=== PATIENT | male | born 1995 | race Caucasian/White ===

== ENCOUNTER 2016-06-26 13:48 | Emergency (ER) | payer BC ==
[~2016-06-26] VITALS: Ht 180.3 cm; Wt 115.0 kg
[2016-06-26 13:49] VITALS: BP 129/88; PULSE 89; RESP 14; TEMP 98.2; O2SAT 100
[2016-06-26] MEDS ORDERED: SODIUM CHLOR 0.9% 1000 ML INJ 1,000 ML IV SCH (14:07)
[2016-06-26] MEDS ORDERED: SODIUM CHLORIDE 0.9% FLUSH 5 ML FLUSH IVF PRN (14:15)
[2016-06-26] MEDS ORDERED: ONDANSETRON HCL 4 MG/2 ML VIAL IVP ONE (14:15)
[2016-06-26] MEDS ORDERED: KETOROLAC TROMETHAMINE 30 MG/ML (IVP) VIAL IVP ONE (14:15)
[2016-06-26] MEDS ORDERED: ZOFR4TAB3 SL (14:22)
[2016-06-26] MEDS ORDERED: NAPR500 PO (14:22)
[2016-06-26] MEDS ORDERED: HYDR-3533 PO (14:22)
--- NOTE | 2016-06-26 14:22 | PD ---
HPI Chief Complaint: Flank/Kidney Pain Time Seen by Provider: 14:07 Travel History International Travel<30 days: No Contact w/Intl Traveler<30days: No Traveled to known affect area: No History of Present Illness HPI So well 20-year-old presents emergent [place] of left flank pain associate with nausea and vomiting that started about 2-3 hours prior to arrival. No history of previous similar symptoms. Family history of kidney stones. He otherwise has been feeling generally well and healthy. No fevers or chills. No diarrhea. No urinary changes and is noted. No other complaints. History Past Medical History Medical History: Denies Significant Hx Social History Tobacco Use: No Allergies-Medications (Allergen,Severity, Reaction): Coded Allergies: No Known Allergies (Unverified , 06/26/16) Reported Meds & Prescriptions Reported Meds & Active Scripts Active Zofran Odt (Ondansetron Odt) 4 Mg Tab 4 Mg SL Q8HR PRN May substitute non-ODT form. Lortab (Hydrocodone-Acetaminophen) 5-325 Mg Tab 1-2 Tab PO Q6H PRN Naprosyn (Naproxen) 500 Mg Tab 500 Mg PO BID PRN Review of Systems Except as stated in HPI: all other systems reviewed are Neg Physical Exam Narrative GENERAL: Well-appearing 20-year-old, appears uncomfortable, diaphoretic. Imminently retching. SKIN: Warm and dry. Diaphoretic. HEAD: Atraumatic. Normocephalic. CARDIOVASCULAR: Regular rate and rhythm. No murmur appreciated. RESPIRATORY: No accessory muscle use. Clear to auscultation. Breath sounds equal bilaterally. GASTROINTESTINAL: Abdomen soft, non-tender, nondistended. Hepatic and splenic margins not palpable. CVA unremarkable. MUSCULOSKELETAL: No obvious deformities. No edema. NEUROLOGICAL: Awake and alert. No obvious cranial nerve deficits. Motor grossly within normal limits. Normal speech. Data Data Last Documented VS Vital Signs Date Time Temp Pulse Resp B/P Pulse Ox O2 Delivery O2 Flow Rate FiO2 06/26/16 14:15 16 06/26/16 13:49 98.2 89 129/88 100 Room Air Orders Complete Blood Count With Diff (06/26/16 14:07) Comprehensive Metabolic Panel (06/26/16 14:07) Lipase (06/26/16 14:07) Urinalysis - C+S If Indicated (06/26/16 14:07) Iv Access Insert/Monitor (06/26/16 14:07) Ondansetron Inj (Zofran Inj) (06/26/16 14:15) Sodium Chlor 0.9% 1000 Ml Inj (Ns 1000 M (06/26/16 14:07) Sodium Chloride 0.9% Flush (Ns Flush) (06/26/16 14:15) Ketorolac Inj (Toradol Inj) (06/26/16 14:15) Ct Abd/Pel W/O Iv Contrast (06/26/16 ) Morphine Inj (Morphine Inj) (06/26/16 14:45) Labs Laboratory Tests Test 06/26/16 14:10 White Blood Count 9.9 TH/MM3 Red Blood Count 5.14 MIL/MM3 Hemoglobin 14.3 GM/DL Hematocrit 41.6 % Mean Corpuscular Volume 81.0 FL Mean Corpuscular Hemoglobin 27.9 PG Mean Corpuscular Hemoglobin 34.4 % Concent Red Cell Distribution Width 12.9 % Platelet Count 247 TH/MM3 Mean Platelet Volume 8.2 FL Neutrophils (%) (Auto) 70.0 % Lymphocytes (%) (Auto) 20.9 % Monocytes (%) (Auto) 7.4 % Eosinophils (%) (Auto) 1.4 % Basophils (%) (Auto) 0.3 % Neutrophils # (Auto) 6.9 TH/MM3 Lymphocytes # (Auto) 2.1 TH/MM3 Monocytes # (Auto) 0.7 TH/MM3 Eosinophils # (Auto) 0.1 TH/MM3 Basophils # (Auto) 0.0 TH/MM3 CBC Comment DIFF FINAL Differential Comment Urine Color YELLOW Urine Turbidity CLEAR Urine pH 6.0 Urine Specific Bricelyn 1.032 Urine Protein 30 mg/dL Urine Glucose (UA) NEG mg/dL Urine Ketones NEG mg/dL Urine Occult Blood MOD Urine Nitrite NEG Urine Bilirubin NEG Urine Urobilinogen 2.0 MG/DL Urine Leukocyte Esterase NEG Urine RBC /hpf Urine Calcium Oxalate Crystals FEW /hpf Urine Mucus FEW /lpf Microscopic Urinalysis Comment CULT NOT INDICATED Sodium Level 143 MEQ/L Potassium Level 3.8 MEQ/L Chloride Level 107 MEQ/L Carbon Dioxide Level 28.1 MEQ/L Anion Gap 8 MEQ/L Blood Urea Nitrogen 11 MG/DL Creatinine 1.16 MG/DL Estimat Glomerular Filtration 80 ML/MIN Rate Random Glucose 105 MG/DL Calcium Level 9.2 MG/DL Total Bilirubin 0.3 MG/DL Aspartate Amino Transf 16 U/L (AST/SGOT) Alanine Aminotransferase 31 U/L (ALT/SGPT) Alkaline Phosphatase 87 U/L Total Protein 7.1 GM/DL Albumin 4.5 GM/DL Lipase 117 U/L [facility] Medical Decision Making Medical Screen Exam Complete: Yes Emergency Medical Condition: Yes Interpretation(s) LABS: CBC unremarkable CMP unremarkable UA positive for hematuria CT abdomen and pelvis: 3 mm stone at the left UVJ. Differential Diagnosis Renal stone, pancreatitis, diverticulitis, UTI, other Narrative Course Medical decision making 20-year-old man with left flank pain likely renal stone. We'll check labs, CT imaging, reassess. Diagnosis Primary Impression: Renal calculus, left Additional Instructions: Take Naprosyn and Lortab as needed for pain. Take Zofran as needed for nausea or vomiting. Follow-up with a primary physician in the next 3-5 days if you're not feeling completely well. Return to the emergency department for any worsening abdominal pain, fevers or chills, or any other new or worsening symptoms. Med/Other Pt SpecificInfo: Prescription(s) given Scripts Ondansetron Odt (Zofran Odt)4 Mg Tab4 Mg SL Q8HR PRN (Nausea/Vomiting) #15 TAB May substitute non-ODT form. Prov:Scott Santos MD 06/26/16 Hydrocodone-Acetaminophen (Lortab)5-325 Mg Tab1-2 Tab PO Q6H PRN (PAIN) #12 TAB Prov:Scott Santos MD 06/26/16 Naproxen (Naprosyn)500 Mg [id number] Mg PO BID PRN (PAIN SCALE 1 TO 10) #20 TAB Prov:Scott Santos MD 06/26/16 Disposition: 01 DISCHARGE HOME Condition: Stable Scott Santos MD Jun 26, 2016 14:22
[2016-06-26 14:28] LABS: AUTOMATED NEUTROPHIL # 6.9 TH/MM3 (1.8-7.7); BASOPHIL % 0.3 % (0.0-2.0); EOSINOPHIL # 0.1 TH/MM3 (0-0.4); EOSINOPHIL % 1.4 % (0.0-4.0); HEMATOCRIT 41.6 % (39.0-51.0); HEMO FLAGS DIFF FINAL; LYMPH % 20.9 % (9.0-44.0); LYMPHOCYTE # 2.1 TH/MM3 (1.0-4.8); MEAN CORPUSCULAR HEMOGLOBIN 27.9 PG (27.0-34.0); MEAN CORPUSCULAR HGB CONC 34.4 % (32.0-36.0); MONO % 7.4 % (0.0-8.0); PLATELET COUNT 247 TH/MM3 (150-450); RED BLOOD COUNT 5.14 MIL/MM3 (4.50-5.90); RED CELL DISTRIBUTION WIDTH 12.9 % (11.6-17.2); WHITE BLOOD COUNT 9.9 TH/MM3 (4.0-11.0)
[2016-06-26 14:30] LABS: BLOOD, URINE MOD (NEG); CALCIUM OXALATE CRYSTALS,URINE FEW /hpf; COMMENT (UR) CULT NOT INDICATED; CULTURE IF INDICATED CULT NOT INDICATED; GLUCOSE,URINE NEG (NEG); KETONE, URINE NEG (NEG); MUCUS URINE FEW /lpf (OCC); NITRITE,URINE NEG (NEG); URINE COLOR YELLOW (YELLW/STRAW)
[2016-06-26 14:45] LABS: ANION GAP 8 MEQ/L (5-15); AST (GOT) 16 U/L (15-39); BICARBONATE 28.1 MEQ/L (21.0-32.0); BLOOD UREA NITROGEN 11 MG/DL (7-18); CHLORIDE 107 MEQ/L (98-107); POTASSIUM 3.8 MEQ/L (3.5-5.1); SODIUM (NA) 143 MEQ/L (136-145)
[2016-06-26] MEDS ORDERED: MORPHINE SULFATE 4 MG/ML INJ IV PUSH ONE (14:45)
[2016-06-26 14:50] LABS: ALKALINE PHOSPHATASE 87 U/L (45-117); ALT (GPT) 31 U/L (9-52); GLOMERULAR FILTRATION RATE 80 ML/MIN (>89); TOTAL BILIRUBIN ADULT 0.3 MG/DL (0.2-1.0)
--- NOTE | 2016-06-26 15:20 | RADRPT ---
EXAM DATE/TIME: 06/26/2016 15:07 [facility] COMPARISON: No previous studies available for comparison. INDICATIONS : Left flank pain. ORAL CONTRAST: No oral contrast ingested. RADIATION DOSE: 8.45 CTDIvol (mGy) MEDICAL HISTORY : None SURGICAL HISTORY : None. ENCOUNTER: Initial ACUITY: 1 day PAIN SCALE: 5/10 LOCATION: Left flank TECHNIQUE: Volumetric scanning of the abdomen and pelvis was performed. Using automated exposure control and ad justment of the mA and/or kV according to patient size, radiation dose was kept as low as reasonably achievable to obtain optimal diagnostic quality images. FINDINGS: LOWER LUNGS: The visualized lower lungs are clear. LIVER: Homogeneous density without lesion. There is no dilation of the biliary tree. No calcified gallston es. SPLEEN: Normal size without lesion. PANCREAS: Within normal limits. KIDNEYS: The kidneys are grossly normal in size. There is mild left-sided hydronephrosis and hydroureter to th e level of the UVJ where there is a 3 mm stone. The right kidney is unremarkable. ADRENAL GLANDS: Within normal limits. VASCULAR: There is no aortic aneurysm. BOWEL/MESENTERY: The stomach, small bowel, and colon demonstrate no acute abnormality. There is no free intraperitone al air or fluid. ABDOMINAL WALL: Within normal limits. RETROPERITONEUM: There is no lymphadenopathy. BLADDER: No wall thickening or mass. REPRODUCTIVE: Within normal limits. INGUINAL: There is no lymphadenopathy or hernia. MUSCULOSKELETAL: Within normal limits for patient age. CONCLUSION: Mild left-sided hydronephrosis and hydroureter to the level of the UVJ where there is a 3 mm stone wi thin the lumen.. Clare Hough MD on June 26, 2016 at 15:16 Board Certified Radiologist. This report was verified electronically.
[2016-06-26 15:29] VITALS: RESP 16
== END 2016-06-26 15:42 | disposition home or self-care (01) ==
LOC: NETRI 13:48
DX: N20.0 Calculus of kidney (principal); R11.2 Nausea with vomiting, unspecified
CPT/HCPCS: 74176; 80053; 81001; 83690; 85025; 96361; 96374; 96375; 99284; J1885; J2270; J2405; J7030